=== PATIENT | female | born 1980 | race Caucasian/White ===

== ENCOUNTER → 2022-04-05 | Outpatient (CLI) | payer OTHER ==
[2022-04-05 17:33] VITALS: BP 132/82; PULSE 91; RESP 13; TEMP 98.3; BMI 34.1
--- NOTE | 2022-04-05 17:59 | P.HPBAR ---
Bariatric H&P - History & Physicial H&P Date: 04/05/22 History & Physicial: Visit/CC: new pt Patient initial contact: Initial weight: Initial weight in pounds: Height: 5 ft 3.9 in Initial BMI: Last weight: Current weight: 89.947 kg Current weight in pounds: 198.30 Current BMI: 34.1 [place] body weight (based on NIH guidelines): 54.204 kg Excess body weight loss: The patient is a 41 year-old F who presents for Bariatric Assessment. Highest weight of 220 pounds. She is 5'4. 205 pounds. Quite smoking weeds. She needs medical supervised. Three months. She has PCOS Past Medical History Past Medical History: Thyroid Disorder Additional Past Medical History / Comment(s): hypothyroid History of Any Multi-Drug Resistant Organisms: None Reported Past Anesthesia/Blood Transfusion Reactions: No Reported Reaction Past Psychological History: Anxiety, Depression Smoking Status: Former smoker Past Alcohol Use History: None Reported Past Drug Use History: None Reported - Past Family History Father Family Medical History: Congestive Heart Failure (CHF), Diabetes Mellitus Surgical - Exam Vital Signs Temp Pulse Resp BP 98.3 F 91 13 132/82 04/05/22 17:25 04/05/22 17:25 04/05/22 17:25 04/05/22 17:25 Bariatric Checklist Checklist: Plan: Checklist: EGD: 1. Hiatal hernia: 2. H. Pylori: HgbA1c: Vitamin D: Smoking: Primary care physician referral: iris ruby Psychiatry clearance: Cardiology clearance: Sleep study: Diet journal: VTE risk score: VTE risk level: Rehab needs at discharge:
== END ==
LOC: BARWHC3 15:50
PROVIDERS: ATTEND Surgery Plastic and Reconstructive Surgery
DX: E66.01 Morbid (severe) obesity due to excess calories (principal); Z68.34 Body mass index [BMI] 34.0-34.9, adult; E03.9 Hypothyroidism, unspecified; Z88.0 Allergy status to penicillin; Z79.890 Hormone replacement therapy
CPT/HCPCS: 99202

== ENCOUNTER → 2022-05-24 | Outpatient (CLI) | payer OTHER ==
[2022-05-24 13:37] VITALS: BP 147/87; PULSE 118; TEMP 98; BMI 36.1
--- NOTE | 2022-05-24 14:27 | P.BASOAP ---
Subjective Progress Note Date: 05/24/22 She is looking the sleeve. Labs obtained from [facility]. Severe high cholesterol and triglyceride. Vit D is low. Objective - Vital Signs Vital signs: Vital Signs Temp 98.0 F 05/24/22 13:31 Pulse 118 H 05/24/22 13:31 Resp BP 147/87 05/24/22 13:31 Pulse Ox FiO2 Intake & Output 05/23/22 05/24/22 05/24/22 18:59 06:59 18:59 Weight 95.254 kg Assessment/Plan Plan: Date: 05/24/22 Initial Weight: Initial BMI: Current Weight: 95.254 kg Current BMI: 36.1 Type of Surgery: Total Volume in Band: Previous Volume: Volume Removed: Volume Added: Band Size:
== END ==
LOC: BARWHC3 12:59
PROVIDERS: ATTEND Surgery Plastic and Reconstructive Surgery
DX: E66.01 Morbid (severe) obesity due to excess calories (principal); E78.00 Pure hypercholesterolemia, unspecified; Z68.36 Body mass index [BMI] 36.0-36.9, adult; Z88.0 Allergy status to penicillin
CPT/HCPCS: 99211

== ENCOUNTER → 2022-06-28 | Outpatient (CLI) | payer OTHER ==
--- NOTE | 2022-06-28 16:34 | P.BASOAP ---
Subjective Progress Note Date: 06/28/22 3 rd month of medical supervised weight loss. SHe reports medication induced weight gain. Recommend weight loss. Assessment/Plan Plan: Date: Initial Weight: Initial BMI: Current Weight: Current BMI: Type of Surgery: Total Volume in Band: Previous Volume: Volume Removed: Volume Added: Band Size:
[2022-06-28 16:40] VITALS: BP 148/90; PULSE 105; TEMP 97.6; BMI 36.8
== END ==
LOC: BARWHC3 15:32
PROVIDERS: ATTEND Surgery Plastic and Reconstructive Surgery
DX: E66.01 Morbid (severe) obesity due to excess calories (principal); Z68.36 Body mass index [BMI] 36.0-36.9, adult; Z88.0 Allergy status to penicillin
CPT/HCPCS: 99211

== ENCOUNTER → 2022-07-26 | Outpatient (CLI) | payer OTHER | END | disposition home or self-care (01) | LOC: LABWHC1 15:20 | PROVIDERS: ATTEND Surgery Plastic and Reconstructive Surgery | DX: Z53.9 Procedure and treatment not carried out, unspecified reason (principal) ==

== ENCOUNTER → 2022-07-26 | Outpatient (CLI) | payer OTHER ==
[2022-07-26 16:25] VITALS: BP 114/76; PULSE 98; TEMP 98; BMI 36.5
--- NOTE | 2022-07-26 17:16 | P.BASOAP ---
Subjective Progress Note Date: 07/26/22 SHe is eating 60 to 70 g. No food diary journal. Needs food diary. Labs pending. Objective - Vital Signs Vital signs: Vital Signs Temp 98.0 F 07/26/22 16:22 Pulse 98 07/26/22 16:22 Resp BP 114/76 07/26/22 16:22 Pulse Ox FiO2 Intake & Output 07/25/22 07/26/22 07/26/22 18:59 06:59 18:59 Weight 96.298 kg Assessment/Plan Plan: Date: 07/26/22 Initial Weight: Initial BMI: Current Weight: 96.298 kg Current BMI: 36.5 Type of Surgery: Total Volume in Band: Previous Volume: Volume Removed: Volume Added: Band Size:
== END ==
LOC: BARWHC3 15:48
PROVIDERS: ATTEND Surgery Plastic and Reconstructive Surgery
DX: E66.01 Morbid (severe) obesity due to excess calories (principal); Z68.36 Body mass index [BMI] 36.0-36.9, adult; Z88.0 Allergy status to penicillin
CPT/HCPCS: 93005; G0463; 99211

== ENCOUNTER → 2022-09-25 | Outpatient (CLI) | payer OTHER ==
[2022-09-25 11:35] VITALS: BMI 38.4
== END ==
LOC: BARWHC3 08:55
PROVIDERS: ATTEND Surgery Plastic and Reconstructive Surgery
DX: E66.01 Morbid (severe) obesity due to excess calories (principal); Z71.3 Dietary counseling and surveillance; Z68.38 Body mass index [BMI] 38.0-38.9, adult; Z88.0 Allergy status to penicillin
CPT/HCPCS: 97804

== ENCOUNTER → 2022-10-18 | Outpatient (CLI) | payer OTHER ==
[2022-10-18 15:27] VITALS: BP 156/91; PULSE 111; TEMP 98; BMI 37.0
--- NOTE | 2022-10-18 15:38 | P.BASOAP ---
Subjective Progress Note Date: 10/18/22 She lost 8 pounds in 1 month. She does not have a food journal. Ate yesterday, protein bowl from [employer], Protein intake is 45 grams. Needs more protein at least 75 grams and exercise journal. Weight is up and down. Here for medical weight loss. Objective - Vital Signs Vital signs: Vital Signs Temp 98 F 10/18/22 15:24 Pulse 111 H 10/18/22 15:24 Resp BP 156/91 10/18/22 15:24 Pulse Ox FiO2 Intake & Output 10/17/22 10/18/22 10/18/22 18:59 06:59 18:59 Weight 97.522 kg Assessment/Plan Plan: Date: 10/18/22 Initial Weight: Initial BMI: Current Weight: 97.522 kg Current BMI: 37.0 Type of Surgery: Total Volume in Band: Previous Volume: Volume Removed: Volume Added: Band Size:
== END ==
LOC: BARWHC3 15:14
PROVIDERS: ATTEND Surgery Plastic and Reconstructive Surgery
DX: Z53.9 Procedure and treatment not carried out, unspecified reason (principal)
CPT/HCPCS: 99211